=== PATIENT | male | born 1955 | race Caucasian/White ===

== ENCOUNTER 2025-03-17 15:19 | Observation (INO) ==
--- NOTE | 2025-03-17 16:02 | Emergency Department Note ---
Impression & Plan Generalized seizure, Leukocytosis ED Provider Note NAME: KEYONA GARZA AGE: 69 SEX: M : 1955 ARRIVES VIA: Ambulance INFORMANT: Patient ED PROVIDER(S): Delfino Vásquez DO CHIEF COMPLAINT: Possible seizure HPI: Patient is a 69-year-old male with a past medical history of aortic rupture, hypertension, hyperlipidemia, smoker and 1 previous episode of passing out about 68 months ago. He notes today he was working at [employer] and does not remember anything before or afterwards. Per EMS when he woke up he was agitated and confused. Took him a little bit did come to. He notes he did bite his tongue. He does admit to a headache. No change or loss of vision. No chest pain or shortness of breath. No nausea, vomiting, or diarrhea. No dysuria, urgency, or frequency. No weakness or numbness in the arms or legs. No other exacerbating or remitting factors. ADDITIONAL HISTORY OBTAINED: Per HPI Chronic Medical/Social Conditions Affecting Care: Per HPI PAST MEDICAL HISTORY:See Below PAST SURGICAL HISTORY:See Below FAMILY HISTORY:See Below SOCIAL HISTORY:See Below HOME MEDICATIONS:See Below ALLERGIES:See Below VITALS:See Below PHYSICAL EXAMINATION: GENERAL: Sitting up in bed, alert, well appearing, well nourished, no distress, non-toxic EYE EXAM: normal conjunctiva. PERRL and EOM's intact. HEAD: Small abrasion over right eyebrow and right upper eyelid OROPHARYNX: no exudate, no erythema, lips, buccal mucosa, but bite rodriguez along the right side of tongue normal and mucous membranes are moist NECK: supple, no nuchal rigidity, no adenopathy, non-tender LUNGS: Clear to auscultation. Normal chest wall mechanics HEART: no murmurs, S1 normal and S2 normal ABDOMEN: abdomen soft, non-tender, normo-active bowel sounds, no masses, no rebound or guarding. BACK: Back is symmetrical on inspection and there is no deformity, no midline tenderness, no CVA tenderness. SKIN: no rashes and no bruising UPPER EXTREMITIES: upper extremities are grossly normal. LOWER EXTREMITIES: No pitting edema. NEURO EXAM: Normal sensorium, cranial nerves II-XII intact, normal speech, no weakness of arms, no weakness of legs. No drift. Finger to nose intact. Gross sensation intact. MEDICAL DECISION MAKING: Patient is a 69-year-old male who presents to the ER for the above-stated complaint. IV was established and blood work was obtained. Labs show mild leukocytosis of 12,000. No significant anemia. BMP along with LFTs bilirubin was unremarkable. Troponins were negative x 2 but did double. Lipase was normal. CT of the head does suggest several strokes and recommended MRI. Patient is neurologically intact at this time. He did bite his tongue. I do favor he likely had a seizure but with the CT suggesting several strokes and MRI I did discuss case with the hospitalist for further evaluation management and treatment. Consults/Care Managements Discussions: Per [facility] Triage Nursing notes reviewed. Limited review of prior medical records performed Vital Signs: reviewed and remarkable for no significant abnormalities Differential diagnosis: Differential diagnosis includes etiologies such as infection, hypoglycemia, electrolyte abnormalities, cardiac sources, intracerebral event, trauma, toxicologic, neurologic, as well as others were entertained. ER treatment provided: See below Diagnostics interpreted by me include EKG and cardiac monitoring as listed below: -Cardiac Monitoring: An order was placed for continuous cardiac monitoring. The monitor shows a rate of 80 with sinus rhythm. -ECG: Sinus rhythm at 76 Normal axis No PVCs QTc 420 -Laboratory studies:Interpreted by me as stated above in MDM and shown below. Imaging studies: Xrays: As interpreted by me: Portable AP upright 1 view of the chest shows no focal infiltrate CTs show: CT head was negative Procedures:none Critical Care: None Past Med/Surg History Problem List (Updated 03/17/25 @ 19:21 by Delfino Vásquez DO) Leukocytosis (Acute) Generalized seizure (Acute) Social History Smoking Status: Current every day smoker Preferred Language: German Feels Safe at Home: Yes Allergies Allergies Allergy/AdvReac Type Severity Reaction Status Date / Time No Known Allergies Allergy Unverified 03/17/25 18:41 Home Meds Home Medications Medication Instructions Recorded Confirmed albuterol sulfate 90 mcg/actuation 2 puff inhalation Q4 PRN as 03/17/25 03/17/25 aerosol inhaler directed amlodipine 10 mg tablet 10 mg PO QAM 03/17/25 03/17/25 aspirin 81 mg tablet,delayed 81 mg PO DAILY 03/17/25 03/17/25 release carvedilol 6.25 mg tablet 6.25 mg PO BID 03/17/25 03/17/25 rosuvastatin 40 mg tablet 40 mg PO QPM 03/17/25 03/17/25 Results & Data (ED) Vital Signs Vital Signs - 24 hr 03/17/25 15:29 03/17/25 15:29 03/17/25 15:41 Temperature 36.7 C Temperature Source Oral Pulse Rate 69 68 Pulse Rate [Apical] Pulse Rate from SpO2 Sensor Pulse Rhythm Regular Pulse Rhythm [Apical] Pulse Strength Normal Pulse Strength [Apical] Respiratory Rate 14 Respiratory Effort / Characteristics Non-Labored Spontaneous Respiratory Depth Normal Respiratory Pattern Regular Blood Pressure 119/75 Blood Pressure [Right Arm] Blood Pressure Mean 89 Blood Pressure Mean [Right Arm] Blood Pressure Position Lying Blood Pressure Position [Right Arm] Pulse Oximetry 96 92 Oxygen Delivery Method Room Air Room Air Sepsis Recent Fever Within 48 Hours No Sepsis New/Unexplained Change in Mental Status No Sepsis Action Taken by Nursing No Action Required 03/17/25 15:53 03/17/25 17:05 03/17/25 19:00 Temperature Temperature Source Pulse Rate 66 58 L Pulse Rate [Apical] 62 Pulse Rate from SpO2 Sensor 60 Pulse Rhythm Pulse Rhythm [Apical] Regular Pulse Strength Pulse Strength [Apical] Normal Respiratory Rate 18 20 23 Respiratory Effort / Characteristics Non-Labored Spontaneous Respiratory Depth Normal Respiratory Pattern Regular Blood Pressure 121/79 Blood Pressure [Right Arm] 132/77 Blood Pressure Mean 93 Blood Pressure Mean [Right Arm] 95 Blood Pressure Position Blood Pressure Position [Right Arm] Lying Pulse Oximetry 94 97 94 Oxygen Delivery Method Room Air Room Air Room Air Sepsis Recent Fever Within 48 Hours Sepsis New/Unexplained Change in Mental Status Sepsis Action Taken by Nursing Laboratory Data 03/17/25 16:32 03/17/25 15:20 Lab Results 03/17/25 03/17/25 03/17/25 Range/Units 15:20 16:32 17:20 WBC Cancelled 12.56 H RBC Cancelled 4.59 L Hgb Cancelled 15.0 Hct Cancelled 44.0 MCV Cancelled 95.9 MCH Cancelled 32.7 MCHC Cancelled 34.1 RDW Std Deviation Cancelled 50.5 H RDW Coeff of Madeline Cancelled 14.4 Plt Count Cancelled 171 MPV Cancelled 9.3 L Immature Gran % (Auto) Cancelled 0.6 Neut % (Auto) Cancelled 72.2 Lymph % (Auto) Cancelled 14.5 [place] % (Auto) Cancelled 10.2 Eos % (Auto) Cancelled 1.8 Baso % (Auto) Cancelled 0.7 Neut # (Auto) Cancelled 9.08 H Lymph # (Auto) Cancelled 1.82 [place] # (Auto) Cancelled 1.28 H Eos # (Auto) Cancelled 0.22 Baso # (Auto) Cancelled 0.09 Immature Gran # (Auto) Cancelled 0.07 Absolute Nucleated RBC Cancelled Nucleated RBC % (auto) Cancelled Neutrophils % (Manual) Cancelled Band Neutrophils % Cancelled Lymphocytes % (Manual) Cancelled Prolymphocyte % Cancelled Reactive Lymphs % (Man) Cancelled Monocytes % (Manual) Cancelled Eosinophils % (Manual) Cancelled Basophils % (Manual) Cancelled Metamyelocytes % (Man) Cancelled Myelocytes % (Man) Cancelled Promyelocytes % (Man) Cancelled Blast Cells % (Manual) Cancelled Plasma Cell % (Manual) Cancelled Other Cells % Cancelled Nucleated RBC % Cancelled Neutrophils # (Manual) Cancelled Band Neutrophils # Cancelled Total Absolute Neuts Cancelled Lymphocytes # (Manual) Cancelled Prolymphocyte # Cancelled Reactive Lymphs # Cancelled Total Abs Lymphocytes Cancelled Monocytes # (Manual) Cancelled Eosinophils # (Manual) Cancelled Basophils # (Manual) Cancelled Metamyelocytes # (Man) Cancelled Myelocytes # (Manual) Cancelled Promyelocytes # (Man) Cancelled Blast Cells # (Man) Cancelled Plasma Cell # (Manual) Cancelled Other Cells # Cancelled Nucleated RBCs # (Man) Cancelled Hypersegmented Neuts Cancelled Hyposegmented Neuts Cancelled Hypogranular Neuts Cancelled Large Granular Lymphs Cancelled # Lrg Granular Lymphs Cancelled Hairy Cells Cancelled Smudge Cells Cancelled Toxic Granulation Cancelled Toxic Vacuolation Cancelled Dohle Bodies Cancelled Ghazal Rods Cancelled Platelet Estimate Cancelled Hypogranular Platelets Cancelled Giant Platelets Cancelled Platelet Satelliting Cancelled RBC Morphology Cancelled Polychromasia Cancelled Hypochromasia Cancelled Poikilocytosis Cancelled Basophilic Stippling Cancelled Anisocytosis Cancelled Microcytosis Cancelled Macrocytosis Cancelled Spherocytes Cancelled Pappenheimer Bodies Cancelled Sickle Cells Cancelled Target Cells Cancelled Tear Drop Cells Cancelled Ovalocytes Cancelled Stomatocytes Cancelled [place] Bodies Cancelled Echinocytes Cancelled Acanthocytes (Spur) Cancelled Rouleaux Cancelled RBC Agglutinates Cancelled Schistocytes Cancelled Sezary Cell Cancelled Sodium 138 (136-145) mmol/L Potassium 4.5 (3.5-5.1) mmol/L Chloride 105 (98-107) mmol/L Carbon Dioxide 24 (21-32) mmol/L Anion Gap 9 (3-11) BUN 17 (6-23) mg/dl Creatinine 1.11 (0.6-1.4) mg/dl Est Cr Clr Drug Dosing 56.2 ml/min eGFR 72.78 BUN/Creatinine Ratio 15.3 (10-20) Glucose 105 H (70-99(Fasting)) mg/dl Calcium 9.2 (8.6-10.3) mg/dl Total Bilirubin 0.4 (0.2-1.0) mg/dl AST 26 (13-39) U/L ALT 22 (7-52) U/L Alkaline Phosphatase 51 (34-104) U/L Troponin I High Sens 4.0 9.9 D (0-20) pg/ml Total Protein 6.7 (6.0-8.3) gm/dl Albumin 4.2 (3.4-5.0) gm/dl Globulin 2.5 (2.5-4.0) gm/dl Albumin/Globulin Ratio 1.7 (0.9-2) Lipase 49 (11-82) U/L Blood Parasites ID Cancelled Administered Medications Discontinued Medications Sodium Chloride (Nss) 1,000 mls @ 999 mls/hr IV .Q1H1M ONE Stop: 03/17/25 17:02 Last Infusion: 03/17/25 17:25 Dose: Infused Documented By: Admin: 03/17/25 16:11 Dose: 999 mls/hr Documented By: CAP Imaging Data Radiologist's Impression: Chest X-Ray 03/17/25 15:53 Clinical History: Cough Technique: A frontal view of the chest was obtained Findings: There are no confluent pulmonary infiltrates. The heart size is within normal limits. No pleural effusion or pneumothorax is seen. There is suspected mild pulmonary edema No fracture is noted. Sternal wires are present. There is a cervical fusion Impression: Suspected mild pulmonary edema ACT 112: Positive. There are findings on this exam that require communication between the performing entity and the patient following Patient Test Result Information Act ([place] ACT 112) guidelines. Electronically signed by Marco Seo 03-17-2025 4:[address] 03/17/25 16:02 EXAM: CT head/brain wo con CLINICAL HISTORY: Seizure. TECHNIQUE: Axial non-contrast CT scan of the brain was performed from the skull base to the high parietal region. One of the following dose reduction techniques were utilized for this exam: Automated exposure control, adjustment of the mA and/or kV according to patient size, use of iterative reconstruction. CTDI: 37.94 mGy, DLP: 625.80 mGy-cm. COMPARISON: None. FINDINGS: Brain Parenchyma: Exaggerated deep white matter periventricular hypodensity denoting small artery disease Right frontal periventricular tiny hypodense focus of CSF like attenuation measuring about 5.2 mm in maximum diameter with no appreciable mass effect Left frontal subcortical faintly hypondese focus is also seen with no appreciable mass effect. No evidence of hemorrhage, or mass effect. Ventricular System: Mildly dilated rather symmetrical ventricular system Subarachnoid Spaces: widened both sylvian fissures, prominent cortical sulci, basal cisterns and extra-axial CSF spaces No evidence of subarachnoid hemorrhage or extra-axial fluid collections. Cerebellum and Brainstem: No masses, lesions, or areas of abnormal density. Orbits: Normal appearance of the globes, optic nerves, and extraocular muscles. No evidence of orbital masses or abnormal density. Sinuses: Bilateral maxillary sinusitis and left ethmoidal sinusitis Mastoid Air Cells: Clear mastoid air cells. No evidence of mastoiditis. Skull: Normal skull morphology. IMPRESSION: 1. Age matched brain involutional changes with deep white matter small artery disease. 2. Right frontal periventricular tiny old lacunar infarct and left frontal subcortical small ischaemic focus. 3. Further MRI study is advised. 4. Bilateral maxillary sinusitis and left ethmoiditis. Electronically signed by Som Butler 03-17-2025 5:51 PM Discharge Plan Visit Data Chief Complaint: Seizure Stated Complaint: SEIZURE ED Provider: Delfino Vásquez Discharge Problem: Generalized seizure, Leukocytosis Condition: Fair Forms Stand Alone Forms: My [facility] Prescriptions Prescriptions: No Action amlodipine 10 mg tablet 10 mg PO QAM rosuvastatin 40 mg tablet 40 mg PO QPM carvedilol 6.25 mg tablet 6.25 mg PO BID albuterol sulfate 90 mcg/actuation HFA aerosol inhaler 2 puff INHALATION Q4 PRN (Reason: as directed) aspirin [Aspirin Low-Strength] 81 mg Tablet,Delayed Release (Dr/Ec) 81 mg PO DAILY Rx Instructions: when remembers Referrals Referrals: PCP,NO [Physician] - Discharge Problem: Leukocytosis Qualifiers: Leukocytosis type: unspecified Qualified Code(s): D72.829 - Elevated white blood cell count, unspecified
[2025-03-17] MEDS: SODIUM CHLORIDE 0.9% 1,000 ML IV ONE (16:11)
[2025-03-17 16:28] LABS: Albumin Globulin Ratio 1.7 (0.9-2); Albumin Level 4.2 gm/dl (3.4-5.0); BUN Creatinine Ratio 15.3 (10-20); Bilirubin,Total 0.4 mg/dl (0.2-1.0); Calcium 9.2 mg/dl (8.6-10.3); Creatinine Clr Calc Pharmacy 56.2 ml/min; Globulin 2.5 gm/dl (2.5-4.0); Potassium 4.5 mmol/L (3.5-5.1); Total Protein 6.7 gm/dl (6.0-8.3)
--- NOTE | 2025-03-17 16:45 | XRay Report ---
Clinical History: Cough Technique: A frontal view of the chest was obtained Findings: There are no confluent pulmonary infiltrates. The heart size is within normal limits. No pleural effusion or pneumothorax is seen. There is suspected mild pulmonary edema No fracture is noted. Sternal wires are present. There is a cervical fusion Impression: Suspected mild pulmonary edema ACT 112: Positive. There are findings on this exam that require communication between the performing entity and the patient following Patient Test Result Information Act ([place] ACT 112) guidelines. Electronically signed by Marco Seo 03-17-2025 4:45 PM
[2025-03-17 16:46] LABS: Basophils # (auto) 0.09 K/uL (0.00-0.20); Basophils % (auto) 0.7 %; Eosinophils # (auto) 0.22 K/uL (0.00-0.50); Eosinophils % (auto) 1.8 %; Immature Granulocytes # (auto) 0.07 K/uL (0.01-0.20); Immature Granulocytes % (auto) 0.6 %; Lymphocytes # (auto) 1.82 K/uL (1.20-3.40); Lymphocytes % (auto) 14.5 %; Mean Corpuscular Hemoglobin 32.7 pg (25.0-34.0); Mean Corpuscular Hgb Conc 34.1 g/dL (32.0-36.0); Mean Corpuscular Volume 95.9 fL (80.0-100.0); Mean Platelet Volume 9.3 fL (9.4-12.4); Monocytes # (auto) 1.28 K/uL (0.11-0.59); Monocytes % (auto) 10.2 %; Neutrophils # (auto) 9.08 K/uL (1.40-6.50); Neutrophils % (auto) 72.2 %; Platelet Count 171 K/uL (130-400); RDW Coefficient of Variation 14.4 % (11.5-14.5); RDW Standard Deviation 50.5 fL (36.4-46.3); Red Blood Count 4.59 M/uL (4.70-6.10); White Blood Count 12.56 K/ul (4.8-10.8)
--- NOTE | 2025-03-17 17:51 | CT Scan Report ---
EXAM: CT head/brain wo con CLINICAL HISTORY: Seizure. TECHNIQUE: Axial non-contrast CT scan of the brain was performed from the skull base to the high parietal region. One of the following dose reduction techniques were utilized for this exam: Automated exposure control, adjustment of the mA and/or kV according to patient size, use of iterative reconstruction. CTDI: 37.94 mGy, DLP: 625.80 mGy-cm. COMPARISON: None. FINDINGS: Brain Parenchyma: Exaggerated deep white matter periventricular hypodensity denoting small artery disease Right frontal periventricular tiny hypodense focus of CSF like attenuation measuring about 5.2 mm in maximum diameter with no appreciable mass effect Left frontal subcortical faintly hypondese focus is also seen with no appreciable mass effect. No evidence of hemorrhage, or mass effect. Ventricular System: Mildly dilated rather symmetrical ventricular system Subarachnoid Spaces: widened both sylvian fissures, prominent cortical sulci, basal cisterns and extra-axial CSF spaces No evidence of subarachnoid hemorrhage or extra-axial fluid collections. Cerebellum and Brainstem: No masses, lesions, or areas of abnormal density. Orbits: Normal appearance of the globes, optic nerves, and extraocular muscles. No evidence of orbital masses or abnormal density. Sinuses: Bilateral maxillary sinusitis and left ethmoidal sinusitis Mastoid Air Cells: Clear mastoid air cells. No evidence of mastoiditis. Skull: Normal skull morphology. IMPRESSION: 1. Age matched brain involutional changes with deep white matter small artery disease. 2. Right frontal periventricular tiny old lacunar infarct and left frontal subcortical small ischaemic focus. 3. Further MRI study is advised. 4. Bilateral maxillary sinusitis and left ethmoiditis. Electronically signed by Som Butler 03-17-2025 5:51 PM
--- NOTE | 2025-03-17 19:40 | History & Physical Report ---
Date of Service March 17, 2025 Assessment & Plan (1) Syncope: (2) History of aortic aneurysm repair: (3) Smoker: (4) Hypertension: (5) History of CVA (cerebrovascular accident): Plan 69-year-old man with history of CVA, hypertension, current smoker, ruptured aortic aneurysm who presents after an episode of loss of consciousness. Labs notable for WBC of 12 Trop was 4 ->9.9 CT head noted old infarct in right frontal and left frontal subcortical small ischemic focus, bilateral maxillary sinusitis and left ethmoiditis Syncopal episode Possibilities include CVA, seizure Get MRI brain Get EEG If abnormalities noted in these, consult Neurology Get UDS, alcohol level EKG personally reviewed. Had TWI in aVL. No old EKG to compare Trop trend has been within normal range but trended up. 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 cardiac patient reports he has Counseled extensively regarding smoking cessation Nicotine patch ordered Counseled regarding alcohol use Continue ASA 81mg daily, statin, carvedilol and amlodipine DVT ppx- Lovenox sq Code status - FULL I spent a total of 75 minutes coordinating, documenting and providing care for this patient excluding time spent in performance of separately billed services History of Present Illness Chief Complaint: Syncope Primary Care Provider: Lenny Warner Capp, 69-year-old man with history of CVA, hypertension, current smoker, ruptured aortic aneurysm who presents after an episode of loss of consciousness. 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 He remembers was being brought to the hospital by EMS. Currently reports a headache. Denies any focal weakness or sensory deficit. Denied loss of control of bladder or bowel Reports he occasionally forgets to take his daily aspirin Reports cough which he stated is resolving from recent URI. Reports chronic intermittent rhinorrhea. Denied fever, chills, nausea, vomiting, abdominal pain, diarrhea, constipation, hematuria, dysuria, frequency, urgency or any other complaints. Reported 1 episode last year of passing out briefly at a gas station. 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 Denied any history of seizures. Reports family history of diabetes in father and brother. Reports active smoking of 1 pack/day since college years. Drinks about 1 small shot of vodka per day. Denied alcohol withdrawal in the past. Reported he had used marijuana in the past Denied use of cocaine/heroine or other illicit drugs Allergies Allergy/AdvReac Type Severity Reaction Status Date / Time No Known Allergies Allergy Unverified 03/17/25 18:41 Home Medications Medication Instructions Recorded Confirmed Type albuterol sulfate 90 mcg/actuation 2 puff inhalation Q4 PRN as 03/17/25 03/17/25 History aerosol inhaler directed amlodipine 10 mg tablet 10 mg PO QAM 03/17/25 03/17/25 History aspirin 81 mg tablet,delayed 81 mg PO DAILY 03/17/25 03/17/25 History release carvedilol 6.25 mg tablet 6.25 mg PO BID 03/17/25 03/17/25 History rosuvastatin 40 mg tablet 40 mg PO QPM 03/17/25 03/17/25 History Past Med/Surg History Problem List (Updated 03/17/25 @ 19:47 by Shayy Chandler MD) History of CVA (cerebrovascular accident) Hypertension Smoker History of aortic aneurysm repair Syncope Leukocytosis (Acute) Generalized seizure (Acute) Social History Smoking Status: Current every day smoker Preferred Language: Khmer Feels Safe at Home: Yes Review of Systems Review of Systems: All systems reviewed & are unremarkable except as noted in HPI & below Physical Exam Constitutional: + well hydrated; no acute distress Small bruise over right eye brow Eyes: PERRL, conjunctivae normal, anicteric sclerae ENMT: external ear and nose normal, oropharynx normal Respiratory: normal respiratory effort, lungs clear to auscultation Cardiovascular: Rate/Rhythm: regular rate and regular rhythm Gastrointestinal (Abdomen): normal bowel sounds, soft, nontender, no hepatosplenomegaly Musculoskeletal: no cyanosis or clubbing, extremities motor strength 5/5 Neurologic: PERRL, EOMI, accommodation nl, no face palsy, no dysarthria Psychiatric: A+Ox3, euthymic affect Results & Data Results & Data Vital Signs (Past 12 Hours) Vital Signs Temp Pulse Pulse Resp BP BP Pulse Ox 03/17/25 19:26 66 03/17/25 19:00 58 L 23 121/79 94 03/17/25 17:05 62 20 132/77 97 03/17/25 15:53 66 18 94 03/17/25 15:41 68 03/17/25 15:29 92 03/17/25 15:29 36.7 C 69 14 119/75 96 O2 Del Method 03/17/25 19:26 03/17/25 19:00 Room Air 03/17/25 17:05 Room Air 03/17/25 15:53 Room Air 03/17/25 15:41 03/17/25 15:29 Room Air 03/17/25 15:29 Room Air Laboratory Results Abnormal lab results 03/17/25 03/17/25 Range/Units 15:20 16:32 WBC 12.56 H (4.8-10.8) K/ul RBC 4.59 L (4.70-6.10) M/uL RDW Std Deviation 50.5 H (36.4-46.3) fL MPV 9.3 L (9.4-12.4) fL Neut # (Auto) 9.08 H (1.40-6.50) K/uL [place] # (Auto) 1.28 H (0.11-0.59) K/uL Glucose 105 H (70-99(Fasting)) mg/dl Diagnostic Findings CT head/brain wo con CLINICAL HISTORY: Seizure. TECHNIQUE: Axial non-contrast CT scan of the brain was performed from the skull base to the high parietal region. One of the following dose reduction techniques were utilized for this exam: Automated exposure control, adjustment of the mA and/or kV according to patient size, use of iterative reconstruction. CTDI: 37.94 mGy, DLP: 625.80 mGy-cm. COMPARISON: None. FINDINGS: Brain Parenchyma: Exaggerated deep white matter periventricular hypodensity denoting small artery disease Right frontal periventricular tiny hypodense focus of CSF like attenuation measuring about 5.2 mm in maximum diameter with no appreciable mass effect Left frontal subcortical faintly hypondese focus is also seen with no appreciable mass effect. No evidence of hemorrhage, or mass effect. Ventricular System: Mildly dilated rather symmetrical ventricular system Subarachnoid Spaces: widened both sylvian fissures, prominent cortical sulci, basal cisterns and extra-axial CSF spaces No evidence of subarachnoid hemorrhage or extra-axial fluid collections. Cerebellum and Brainstem: No masses, lesions, or areas of abnormal density. Orbits: Normal appearance of the globes, optic nerves, and extraocular muscles. No evidence of orbital masses or abnormal density. Sinuses: Bilateral maxillary sinusitis and left ethmoidal sinusitis Mastoid Air Cells: Clear mastoid air cells. No evidence of mastoiditis. Skull: Normal skull morphology. IMPRESSION: 1. Age matched brain involutional changes with deep white matter small artery disease. 2. Right frontal periventricular tiny old lacunar infarct and left frontal subcortical small ischaemic focus. 3. Further MRI study is advised. 4. Bilateral maxillary sinusitis and left ethmoiditis. Code Status & VTE Plan VTE Prophylaxis Plan VTE Prophylaxis will be ordered: Yes
[2025-03-17] MEDS ORDERED: ALBUTEROL HFA 8 GM INHALER INH PRN (21:28)
[2025-03-17] MEDS: NICOTINE 21 MG/24 HR TDSY TD SCH (22:17)
[2025-03-17] MEDS: ENOXAPARIN INJ 40 MG/0.4 ML SYR SQ SCH (22:17)
[2025-03-17] MEDS: carvediloL 6.25 MG TAB PO SCH (22:17)
--- NOTE | 2025-03-17 23:18 | Magnetic Resonance Report ---
Exam(s): MRI HEAD Without Contrast EXAM: MR Head Without Intravenous Contrast CLINICAL HISTORY: Reason for exam: Syncope. History of CVA. Rule of CVA. TECHNIQUE: Magnetic resonance images of the head/brain without intravenous contrast in multiple planes. COMPARISON: Our head CT from March 17, 2025 FINDINGS: Brain: Remote ischemic injury of the right. Mild nonspecific white matter changes. No mass. No hemorrhage. No acute infarct. The flow voids at the base the brain are intact. There are a few tiny scattered foci of susceptibility artifact, which are nonspecific. Small developmental venous anomaly in the left frontal lobe. Ventricles: Unremarkable. No ventriculomegaly. Bones/joints: There is loss of normal bone marrow signal in the C3 and C4 vertebral bodies No acute fracture. Sinuses: Chronic maxillary and ethmoid sinusitis.. No acute sinusitis. Mastoid air cells: Unremarkable as visualized. No mastoid effusion. Orbits: Unremarkable as visualized. IMPRESSION: No evidence of acute intracranial pathology. Loss of normal bone marrow signal in the C3 and C4 vertebral bodies, which may represent a bone marrow replacement process or bone marrow edema. Recommend MRI of the cervical spine with and without contrast for further evaluation. Electronically signed by: Millicent Griffiths MD 03/17/25 23:17 PM
[2025-03-18 04:29] LABS: Amphetamines+Metham, Urine Neg (Neg); Barbiturates, Urine Neg (Neg); Benzodiazepine, Urine Neg (Neg); Cocaine, Urine Neg (Neg); Fentanyl, Urine Neg (Neg); MDMA (Ecstacy), Urine Neg (Neg); Marijuana, Urine Pos (Neg); Methadone, Urine Neg (Neg); Opiate, Urine Neg (Neg); Phencyclidine, Urine Neg (Neg)
[2025-03-18 05:52] LABS: Hematocrit (blood only) 42.9 % (42.0-52.0); Hemoglobin 14.9 g/dl (14.0-18.0); Mean Corpuscular Hemoglobin 33.5 pg (25.0-34.0); Mean Corpuscular Hgb Conc 34.7 g/dL (32.0-36.0); Mean Corpuscular Volume 96.4 fL (80.0-100.0); Mean Platelet Volume 9.5 fL (9.4-12.4); Platelet Count 166 K/uL (130-400); RDW Coefficient of Variation 14.6 % (11.5-14.5); RDW Standard Deviation 51.3 fL (36.4-46.3); Red Blood Count 4.45 M/uL (4.70-6.10)
[2025-03-18 06:05] LABS: BUN Creatinine Ratio 13.1 (10-20); Calcium 8.8 mg/dl (8.6-10.3); Potassium 3.7 mmol/L (3.5-5.1)
--- NOTE | 2025-03-18 07:17 | Electrocardiogram Report ---
Test Reason : Blood Pressure : */* mmHG Vent. Rate : 69 BPM Atrial Rate : 69 BPM P-R Int : 152 ms QRS Dur : 82 ms QT Int : 416 ms P-R-T Axes : 57 -24 76 degrees QTcB Int : 445 ms Normal sinus rhythm Possible Left atrial enlargement Borderline ECG No previous ECGs available Confirmed by Jose M Cruz ([id number]) on 03/18/2025 7:17:08 AM Referred By: REFERRED SELF Confirmed By: Jose M Cruz
[2025-03-18] MEDS: amLODIPine BESYLATE 5 MG TAB PO SCH (09:58)
[2025-03-18] MEDS: ASPIRIN 81 MG ECTAB PO SCH (09:59)
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
[2025-03-18] MEDS: GADOBUTROL 65ML VIAL IV ONE (17:19)
--- NOTE | 2025-03-18 19:47 | Magnetic Resonance Report ---
EXAM: MR cervical spine wo/w con CLINICAL HISTORY: Edema noted C3-C4 on brain MRI, neck pain TECHNIQUE: Multiplanar multiecho MRI sequences of the cervical spine without and with contrast 6.5 ml Gadavist were obtained and submitted for diagnostic interpretation. 6.5 cc GADAVIST. Images were sent through PACS for diagnostic interpretation. COMPARISON: None. FINDINGS: Status post anterior cervical discectomy and fusion surgery at C6 and C7 vertebrae (ACDF) with interbody fusion. The metallic hardware induces inevitable blooming (ferromagnetic) artifacts, degrading the image quality. Reversal of the physiological cervical lordosis, suggesting degenerative ligamentous laxity vs. severe neck muscle spasm. No developmental canal stenosis. The scanned intervertebral discs show variable degrees of degeneration, noted by low signal intensity on T2 WI with a relative reduction of their heights. A wide zone of marrow edema is seen at the C3 and C4 vertebral bodies. Findings suggest septic/aseptic spondylitis. Appreciable enhancement after Gd-DTPA injection. Laboratory correlation and follow-up are recommended as appropriate. Non-specific cervical cord leptomeningeal enhancement. Mild degenerative spondylolisthesis is seen at the C7-T1 level. Mild degenerative retrolisthesis is seen at the C4-C5 and C5-C6 levels. Modic I and II marrow changes at C3 through C5. Level by Level analysis: C2-C3: There is A 1.9 mm annular bulge/osteophytic complex indenting the anterior subarachnoid space, compromising the subarticular recesses. There is mild spinal canal stenosis and mild bilateral neural foraminal stenosis with impingement of the emerging nerve roots. Arthropathic uncovertebral and zygapophyseal joints augment effects. More on the left side. C3-C4: There is a 2.2 mm annular bulge/osteophytic complex indenting the anterior subarachnoid space, compromising the subarticular recesses abutting the opposing segment of the cervical spinal cord. There is moderate spinal canal stenosis and moderate left and mild right neural foraminal stenosis with impingement of the emerging nerve roots. Degenerative retrolisthesis, arthropathic uncovertebral and zygapophyseal joints augment effects. C4-C5: There is a 2.2 mm annular bulge and a 4.6 mm right central and subarticular herniation/osteophytic complex indenting the anterior subarachnoid space, compromising the supported recesses more on the right side. There is severe spinal canal stenosis, was compression of the Opposing segment of the cervical spinal cord against the buckled ligamenta flava, and posterior neural arch with moderate right and mild left neural foraminal stenosis with impingement of the emerging nerve roots. Degenerative retrolisthesis, arthropathic uncovertebral joints augment effects. C5-C6: There is A 3.7 mm annular bulge/osteophytic complex indenting the anterior subarachnoid space, compromising the subarticular recesses abutting the opposing segment of the cervical spinal cord..There is severe spinal canal stenosis and moderate bilateral neural foraminal stenosis with impingement of the emerging nerve roots. Arthropathic uncovertebral and zygapophyseal joints augment effects. C6-C7: interbody fusion. C7-T1: There is a 1.9 mm annular bulge/osteophytic complex indenting the anterior subarachnoid space, compromising the subarticular recesses. There is mild spinal canal stenosis and mild bilateral neural foraminal stenosis with impingement of the emerging nerve roots and degenerative spondylolisthesis, and arthropathic zygapophyseal joints augment effects. The visualized brainstem and cervical-medullary junction are normal. There is no type I Chiari malformation. The cervical cord shows homogeneous signal intensity. Standard craniometric measures of the craniovertebral junction. No retro or paraspinal soft tissue masses. IMPRESSION: 1. Spondylodegenerative cervical disc disease. A wide zone of marrow edema is seen at the C3 and C4 vertebral bodies. Findings suggest septic/aseptic spondylitis. Appreciable enhancement after Gd-DTPA injection. Laboratory correlation and follow-up are recommended as appropriate. 2. Non-specific cervical cord leptomeningeal enhancement. 3. Status post anterior cervical discectomy and fusion surgery at C6 and C7 vertebrae (ACDF) with interbody fusion. The metallic hardware induces inevitable blooming (ferromagnetic) artifacts, degrading the image quality. 4. Mild degenerative spondylolisthesis is seen at the C7-T1 level. 5. Mild degenerative retrolisthesis is seen at the C4-C5 and C5-C6 levels. 6. Modic I and II marrow changes at C3 through C5. 7. Reversal of the physiological cervical lordosis, suggesting degenerative ligamentous laxity vs. severe neck muscle spasm. 8. Multilevel cervical disc pathologies at the C2-C3 through C7-T1 levels with effects exerted upon the central spinal canal, subarticular recesses, and neural foramina. Degenerative spondylolisthesis, retrolisthesis. Buckled ligamenta flava, arthropathic uncovertebral and zygapophyseal joints augment effects. 9. Normal signal of the cervical spinal cord, no compressive myelopathy. Electronically signed by Som Butler 03-18-2025 7:47 PM
[2025-03-19 06:44] LABS: Hematocrit (blood only) 46.6 % (42.0-52.0); Hemoglobin 15.9 g/dl (14.0-18.0); Mean Corpuscular Hemoglobin 33.1 pg (25.0-34.0); Mean Corpuscular Hgb Conc 34.1 g/dL (32.0-36.0); Mean Corpuscular Volume 96.9 fL (80.0-100.0); Platelet Count 172 K/uL (130-400); RDW Coefficient of Variation 14.6 % (11.5-14.5); RDW Standard Deviation 51.8 fL (36.4-46.3); Red Blood Count 4.81 M/uL (4.70-6.10); White Blood Count 8.51 K/ul (4.8-10.8)
[2025-03-19 07:07] LABS: BUN Creatinine Ratio 12.1 (10-20); Calcium 9.2 mg/dl (8.6-10.3); Creatinine Clr Calc Pharmacy 64.8 ml/min; Magnesium 1.9 mg/dl (1.7-2.4); Phosphorus 3.4 mg/dl (2.5-4.9); Potassium 3.9 mmol/L (3.5-5.1)
[2025-03-19 07:33] VITALS: RESP 18; O2SAT 96
[2025-03-19 10:57] VITALS: BP 112/71; TEMP 98.1
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
[2025-03-19] MEDS ORDERED: levETIRAcetam ORAL SOLN 100MG/ML PO SCH (14:45)
[2025-03-19 14:59] VITALS: PULSE 60
--- NOTE | 2025-03-19 15:12 | Neurology Consultation ---
Date of Consultation March 19, 2025 Assessment & Plan (1) Seizure: A 69 year old male admitted with seizure. Had similar episode in the past. Recommend starting KEppra 500 mg BID and outpatient follow up w Neuro w outpatient EEG. No driving per 6 months per [place] state law. Patient expressed understanding. History of Present Illness Reason for Consultation: LOC Requesting Physician: Dr. Mathur Attending Physician: Jennie Mathur MD History of Present Illness A 69yo M w Hx of HTN admitted after a LOC episode w amnesia. Has had similar episode before. Bit his tongue on the right side. No warning. Woke in ambulance. Episode happened at work. No history of stroke. Allergies Allergy/AdvReac Type Severity Reaction Status Date / Time No Known Allergies Allergy Unverified 03/17/25 18:41 Home Medications Medication Instructions Recorded Confirmed Type albuterol sulfate 90 mcg/actuation 2 puff inhalation Q4 PRN as 03/17/25 03/17/25 History aerosol inhaler directed amlodipine 10 mg tablet 10 mg PO QAM 03/17/25 03/17/25 History aspirin 81 mg tablet,delayed 81 mg PO DAILY 03/17/25 03/17/25 History release carvedilol 6.25 mg tablet 6.25 mg PO BID 03/17/25 03/17/25 History rosuvastatin 40 mg tablet 40 mg PO QPM 03/17/25 03/17/25 History levetiracetam 500 mg tablet 500 mg PO BID 60 days #120 tabs 03/19/25 Rx (Keppra) Patient History Social History Smoking Status: Current every day smoker Tobacco Type: Cigarettes Cigarettes Per Day: 1 pack; Hx Alcohol Use: Yes Alcohol type: hard liquor Hx Substance Use: Yes Preferred Language: Vietnamese Communication Ability: 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 Beliefs That Will Affect Care: None Current Living Situation: Alone Feels Safe at Home: Yes Safety Concerns: Feels Safe At This Time Assistive Devices: Glasses Physical Exam Physical Exam: EXAM: Constitutional: appearance normally developed Face: normocephalic and atraumatic Eyes: normal lids, normal conjunctiva Neck: supple Respiratory: normal effort Abdomen: non distended Skin: no rashes, lesions, or ulcers noted Psychiatric: normal mood and normal affect NEUROLOGIC EXAMINATION: Appearance: no acute distress Orientation: awake, alert and oriented x 3 Mental Status: alert Attention: normal Knowledge: appropriate Language: no aphasia Speech: no dysarthria Cranial Nerves: CN 2 - no visual defect on confrontation and pupils round, equal CN 3, 4, 6 - extra-ocular movements intact CN 5 - facial sensation intact CN 7 - no facial asymmetry CN 8 - intact hearing CN 9, 10 - palate symmetric CN 11 - good shoulder shrug CN 12 - tongue midline Gait: deferred Coordination: no ataxia with finger to nose testing Sensory: intact and symmetric to light touch Results & Data Vital Signs (Past 12 Hours) Vital Signs Temp Pulse Pulse Resp BP BP Pulse Ox 03/19/25 14:58 60 03/19/25 10:56 36.7 C 58 L 18 112/71 96 03/19/25 09:16 03/19/25 07:32 36.8 C 59 L 18 110/73 96 03/19/25 07:13 58 L 03/19/25 03:53 36.6 C 55 L 16 109/70 95 O2 Del Method 03/19/25 14:58 03/19/25 10:56 Room Air 03/19/25 09:16 Room Air 03/19/25 07:32 Room Air 03/19/25 07:13 03/19/25 03:53 Room Air Diagnostic Findings MRI brain reviewed. Chronic microvascular ischemic changes
--- NOTE | 2025-03-19 15:17 | Discharge Summary ---
Discharge Summary Date of Service March 19, 2025 Principal Dx & Hospital Course #1 = Principal Diagnosis (1) Syncope: (2) History of aortic aneurysm repair: (3) Smoker: (4) Hypertension: (5) History of CVA (cerebrovascular accident): Plan Mr. Eugene is a 69-year-old man with history of CVA, hypertension, current smoker, ruptured aortic aneurysm who is admitted for syncopal event Patient reports similar history within the last year that occurred while driving. He states he was pulling into the parking lot and next thing he remembers, his brother and others where knocking on his window yelling for him to put the car in park. He states yesterday he did not experience a prodromal event, he was fine leading up to the episode, but does not recall anything until presenting to the ED via EMS. MRI revealed bone marrow enhancement of C3-C4 prompting Ortho spine consult. They felt his was noncontributoary and that patient could follow up OP. Neurology was consulted as event was potentially neurologic in nature. Neurology felt this event was consistent with a seizure, given leukocytosis and post ictal like recovery. Patient started on keppra bid and advised not to drive for atleast 6 months. Patient to follow up for OP EEG with Neurology clinic. Telemetry was reviewed with no acute events noted. On day of discharge, patient was ambulating in room, eating without difficulty and denying any acute concerns. Patient verbalized understanding of directions, including no driving. #Syncopal episode, seizure likely #Prior CVA CT head noted old infarct in right frontal and left frontal subcortical small ischemic focus, bilateral maxillary sinusitis and left ethmoiditis MRI brain no acute stroke UDS with marijuana, blood etoh unremarkable history of prior syncopal episode, now with loop recorder in place -ECHO overall normal with ef 60-65% -Neurology consulted: start keppra bid plan for op eeg neurology follow up -Continue asa statin #Neck pain MRI with c3-c4 edema reports of prior decompression "years ago", now with months of pain Orthopine consulted: multilevel degenerative changes, recommendations for treatment will reviewed when he returns to the office, current findings on the MRI did not play any role in his syncopal episode. #tobacco use -continue nictotine patch #alcohol use no signs of withdrawal ctm #HTN #Prior AAA repair continue BP control #HLD Continue ASA 81mg daily, statin Notes For Next Care Provider NO driving for 6 months, patient verbalized understanding Follow up OP EEG Medication Changes From Visit Keppra 500mg BID Admission HPI Per Admitting Provider 69-year-old man with history of CVA, hypertension, current smoker, ruptured aortic aneurysm who presents after an episode of loss of consciousness. 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 He remembers was being brought to the hospital by EMS. Currently reports a headache. Denies any focal weakness or sensory deficit. Denied loss of control of bladder or bowel Reports he occasionally forgets to take his daily aspirin Reports cough which he stated is resolving from recent URI. Reports chronic intermittent rhinorrhea. Denied fever, chills, nausea, vomiting, abdominal pain, diarrhea, constipation, hematuria, dysuria, frequency, urgency or any other complaints. Reported 1 episode last year of passing out briefly at a gas station. 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 Denied any history of seizures. Reports family history of diabetes in father and brother. Reports active smoking of 1 pack/day since college years. Drinks about 1 small shot of vodka per day. Denied alcohol withdrawal in the past. Reported he had used marijuana in the past Denied use of cocaine/heroine or other illicit drugs Admission Exam Per Admitting Provider Constitutional: + well hydrated; no acute distress Smal l bruise over right eye brow Eyes: PERRL, conjunctivae normal, anicteric sclerae ENMT: external ear and nose normal, oropharynx normal Respiratory: normal respiratory effort, lungs clear to auscultation Cardiovascular: Rate/Rhythm: regular rate and regular rhythm Gastrointestinal (Abdomen): normal bowel sounds, soft, nontender, no hepatosplenomegaly Musculoskeletal: no cyanosis or clubbing, extremities motor strength 5/5 Neurologic: PERRL, EOMI, accommodation nl, no face palsy, no dysarthria Psychiatric: A+Ox3, euthymic affect Discharge Exam Constitutional WD/WN, vitals as above Respiratory normal respiratory effort, lungs clear to auscultation Cardiovascular RRR, no murmur, no edema Gastrointestinal (Abdomen) normal bowel sounds, soft, nontender, no hepatosplenomegaly Neurologic PERRL, EOMI, accommodation nl, no face palsy, no dysarthria Updated Medication List Medication Instructions Recorded Confirmed Type albuterol sulfate 90 mcg/actuation 2 puff inhalation Q4 PRN as 05/09/25 05/09/25 History aerosol inhaler directed amlodipine 10 mg tablet 10 mg PO QAM 03/17/25 03/17/25 History aspirin 81 mg tablet,delayed 81 mg PO DAILY 03/17/25 03/17/25 History release carvedilol 6.25 mg tablet 6.25 mg PO BID 03/17/25 03/17/25 History rosuvastatin 40 mg tablet 40 mg PO QPM 03/17/25 03/17/25 History levetiracetam 500 mg tablet 500 mg PO BID 60 days #120 tabs 03/19/25 Rx (Keppra) Hospital Stay Data Consultations 03/17/25 18:38 ED Decision to Admit Stat 03/19/25 07:45 Consult Orthopedic Spine Surgery Routine 03/19/25 07:53 Consult Neurology Routine Diagnostic Imagining Performed 03/17/25 16:02 CT head/brain wo con Stat 03/17/25 19:37 MRI Brain [MR brain wo con] Stat 03/18/25 14:30 MRI Cervical [MR cervical spine wo/w con] Routine Pending Results Patient Have Any Pending Studies at Discharge: No Discharge Instructions Given to Patient (Per Discharging Provider) You were admitted for passing out episode You heart function remained stable. Your brain did not reveal stroke. You were seen by orthopedic spine for some swelling in your neck and they recommend that you follow up as an outpatient in their office You were ultimately seen by neurology who felt this was a seizure. You will start Keppra 500mg two times a day to help prevent seizures. You must not drive for 6 months. At that time if you remain seizure free you can discuss with your neurologist your ability to return to driving. You must call the Outpatient neurology office to coordinate an EEG which will assess for seizure like activity Total Time Total Time Spent Total Time Spent (In Minutes): 45
[2025-03-19] MEDS: levETIRAcetam 500 MG TAB PO SCH (15:48)
--- NOTE | 2025-03-20 12:28 | Electrocardiogram Report ---
Test Reason : Blood Pressure : */* mmHG Vent. Rate : 62 BPM Atrial Rate : 62 BPM P-R Int : 152 ms QRS Dur : 80 ms QT Int : 412 ms P-R-T Axes : 65 -24 75 degrees QTcB Int : 418 ms Normal sinus rhythm Possible Left atrial enlargement Septal infarct , age undetermined Abnormal ECG When compared with ECG of 17-Mar-2025 15:26, Septal infarct is now Present Confirmed by Boni Mauro ([id number]) on 03/20/2025 12:27:50 PM Referred By: REFERRED SELF Confirmed By: Boni Mauro
[2025-03-22 14:42] LABS: Marijuana Quant, GCMS Urine 129 ng/mL (<5)
== END 2025-03-19 16:20 | disposition home or self-care (01) ==
LOC: ED 15:19 → 4W 15:19 → SUATTDRO 19:35 → 4W 20:39